=== PATIENT | male | born 1980 | race American Indian/Alaskan Native ===

== ENCOUNTER 2019-03-03 02:52 | Emergency (ER) | payer SELFPAY ==
[2019-03-03 03:59] LABS: Basophils % (Auto) 0.6 % (0.0-1.8); Eosinophils # (Auto) 0.1 K/mm3 (0.0-0.4); Eosinophils % (Auto) 2.2 % (0.0-4.3); Hematocrit 47.8 % (35.5-45.6); Lymphocytes # (Auto) 2.6 K/mm3 (1.2-5.4); Lymphocytes % (Auto) 44.4 % (13.4-35.0); Mean Corpuscular HGB Conc 34 % (32-34); Mean Corpuscular Volume 103 fl (84-94); Monocytes # (Auto) 0.5 K/mm3 (0.0-0.8); Monocytes % (Auto) 8.7 % (0.0-7.3); Platelet Count 225 K/mm3 (140-440); Red Blood Count 4.65 M/mm3 (3.65-5.03)
--- NOTE | 2019-03-03 04:00 | XRay Report ---
CHEST 1 VIEW INDICATION / CLINICAL INFORMATION: Chest Pain. COMPARISON: None available. FINDINGS: SUPPORT DEVICES: None. HEART / MEDIASTINUM: No significant abnormality. LUNGS / PLEURA: No significant pulmonary or pleural abnormality.. No pneumothorax. ADDITIONAL FINDINGS: No significant additional findings. IMPRESSION: 1. No acute findings. Signer Name: Tera Branham MD Signed: 03/03/2019 3:56 AM Workstation Name: [id number]
[2019-03-03 04:22] LABS: BUN/Creatinine Ratio 7; Blood Urea Nitrogen 11 mg/dL (9-20); Calcium 9.3 mg/dL (8.4-10.2); Hemolysis Index 18
[2019-03-03] MEDS ORDERED: NACL 0.9% 1000 ML 1,000 ML IV ONE (04:24)
[2019-03-03] MEDS ORDERED: BENADRYL IV ONE (04:24)
[2019-03-03] MEDS ORDERED: DECADRON IV ONE (04:24)
[2019-03-03] MEDS ORDERED: TORADOL IV ONE (04:24)
[2019-03-03] MEDS ORDERED: REGLAN IV ONE (04:24)
--- NOTE | 2019-03-03 04:30 | Emergency Department Report ---
ED Headache HPI - General Chief Complaint: Headache Stated Complaint: MIGRAINE, VOMITTING AND CHEST PAIN, CHEST PRESSURE Time Seen by Provider: 03/03/19 04:23 Source: patient Exam Limitations: no limitations - History of Present Illness Initial Comments: 38 yo M with hx of migraines presents to the ED with complaint of headache. Pt states pain feels like his usual migraine HAs, located behind the eyes with associated photophobia, nausea and vomiting. Pt reports onset 2 days ago. States took imitrex without relief. Pt reports chest pain after vomiting so much. Denies chest pain at this time. Timing/Duration: other (2 days) Quality: severe Recent Head Trauma: no recent headache/trauma, chronic headaches Modifying Factors: improves with: exposure to light Associated Symptoms: nausea/vomiting, weakness (generalized). denies: fever/chills Allergies/Adverse Reactions: Allergies No Known Allergies Allergy (Unverified 03/03/19 03:01) Home Medications: Ambulatory Orders Butalb/Acetamin/Caff 50-325-40 [Fioricet] 1 tab PO Q6HR PRN #10 tab 03/03/19 Ondansetron [Zofran Odt] 4 mg PO Q8HR PRN #20 tab.rapdis 03/03/19 ED Review of Systems ROS: Stated complaint: MIGRAINE, VOMITTING AND CHEST PAIN, CHEST PRESSURE Other details as noted in HPI Comment: All other systems reviewed and negative Constitutional: denies: chills, fever Respiratory: denies: shortness of breath Cardiovascular: chest pain Gastrointestinal: nausea, vomiting Neurological: headache. denies: weakness, numbness ED Past Medical Hx - Past Medical History Previous Medical History?: Yes Hx Asthma: Yes - Surgical History Past Surgical History?: Yes Hx Appendectomy: Yes - Social History Smoking Status: Former Smoker Substance Use Type: None - Medications Home Medications: Home Medications Medication Instructions Recorded Confirmed Last Taken Type Butalb/Acetamin/Caff 50-325-40 1 tab PO Q6HR PRN #10 tab 03/03/19 Unknown Rx [Fioricet] Ondansetron [Zofran Odt] 4 mg PO Q8HR PRN #20 tab.rapdis 03/03/19 Unknown Rx ED Physical Exam - General Limitations: No Limitations General appearance: alert, in no apparent distress - Head Head exam: Present: atraumatic, normocephalic - Eye Eye exam: Present: normal appearance, PERRL, EOMI - ENT ENT exam: Present: mucous membranes moist - Neck Neck exam: Present: normal inspection, full ROM. Absent: meningismus - Respiratory Respiratory exam: Present: normal lung sounds bilaterally. Absent: respiratory distress - Cardiovascular Cardiovascular Exam: Present: regular rate, normal rhythm - GI/Abdominal GI/Abdominal exam: Present: soft. Absent: distended, tenderness - Extremities Exam Extremities exam: Present: normal inspection - Neurological Exam Neurological exam: Present: alert, oriented X3, CN II-XII intact. Absent: motor sensory deficit - Psychiatric Psychiatric exam: Present: normal affect, normal mood - Skin Skin exam: Present: warm, dry, intact, normal color ED Course Vital Signs 03/03/19 03/03/19 03/03/19 03:04 05:46 06:20 Temperature 98.6 F 98.1 F Pulse Rate 76 63 63 Respiratory 16 21 16 Rate Blood Pressure 178/92 138/84 Blood Pressure 129/73 [Right] O2 Sat by Pulse 99 100 100 Oximetry - Reevaluation(s) Reevaluation #1: 03/03/19 05:30 Pt asleep on stretcher. Pt reports he is feeling much better, MANRIQUE much improved compared to the last 2 days. ED Medical Decision Making - Lab Data Result diagrams: 03/03/19 03:38 03/03/19 03:38 - EKG Data EKG shows normal: sinus rhythm, axis, intervals, QRS complexes - EKG Data Interpretation: no acute changes, other (ST elevation due to early r epolarization) - Radiology Data Radiology results: report reviewed, image reviewed - Medical Decision Making 38 yo M presents to ED w/ migraine MANRIQUE. No neuro deficits on exam. Pt reports associated N/V, chest pain from vomiting. EKG shows early repolarization changes, troponin negative, CXR normal. Pt given IV fluids w/ toradol, reglan, benadryl, decadron. Pt feeling much better following administraton. Rx given for fioricet and zofran. Neurology f/u advised. - Differential Diagnosis migraine MANRIQUE, dehydration, ACS Critical care attestation.: If time is entered above; I have spent that time in minutes in the direct care of this critically ill patient, excluding procedure time. ED Disposition Clinical Impression: Acute headache, Migraine Disposition: DC- TO HOME OR SELFCARE Is pt being admited?: No Condition: Stable Instructions: Migraine Headache (ED) Prescriptions: Butalb/Acetamin/Caff 50-325-40 [Fioricet] 1 tab PO Q6HR PRN #10 tab PRN Reason: Headache Ondansetron [Zofran Odt] 4 mg PO Q8HR PRN #20 tab.rapdis PRN Reason: Vomiting Referrals: PRIMARY CAREMD [Primary Care Provider] - 3-5 Days NILDA DE LA TORRE MD [Referring] - 3-5 Days
[2019-03-03 06:21] VITALS: BP 129/73
== END 2019-03-03 06:20 | disposition home or self-care (01) ==
LOC: ED 02:52
DX: G43.909 Migraine, unspecified, not intractable, without status migrainosus (principal); J45.909 Unspecified asthma, uncomplicated; Z90.49 Acquired absence of other specified parts of digestive tract; Z87.891 Personal history of nicotine dependence; Z79.899 Other long term (current) drug therapy
CPT/HCPCS: 36415; 71045; 80048; 84484; 85025; 93005; 93010; 96361; 96374; 96375; 99284; J1100; J1200; J1885; J2765; J7030

== ENCOUNTER 2019-09-18 00:04 | Emergency (ER) | payer SELFPAY ==
[2019-09-18 00:10] VITALS: BP 115/76
[2019-09-18 00:32] LABS: Bilirubin,Urine NEG (Negative); Blood,Urine NEG (Negative); Color,Urine Yellow (Yellow); Protein,Urine <15 mg/dL mg/dL (Negative); Urobilinogen,Urine < 2.0 mg/dL (<2.0); WBC,Urine < 1.0 /HPF (0.0-6.0)
[2019-09-18 00:52] LABS: Hematocrit 50.2 % (35.5-45.6); Hemoglobin 17.3 gm/dl (11.8-15.2); Mean Corpuscular HGB Conc 34 % (32-34); Mean Corpuscular Volume 100 fl (84-94); Platelet Count 254 K/mm3 (140-440); Red Blood Count 5.02 M/mm3 (3.65-5.03); Red Cell Distribution Width 14.7 % (13.2-15.2)
[2019-09-18 01:11] LABS: Albumin 4.8 g/dL (3.9-5); Calcium 9.3 mg/dL (8.4-10.2)
[2019-09-18] MEDS ORDERED: SODIUM CHLORIDE 0.9% 1000 ML 1,000 ML IV ONE (01:39)
[2019-09-18] MEDS ORDERED: CYCLOBENZAPRINE 10 MG TAB PO ONE ×2 (01:40→01:42)
[2019-09-18] MEDS ORDERED: SODIUM CHLORIDE 0.9% 1000 ML 1,000 ML ONE (01:41)
[2019-09-18] MEDS ORDERED: CYCLOBENZAPRINE 10 MG TAB ONE (01:41)
--- NOTE | 2019-09-18 02:38 | Emergency Department Report ---
ED General Adult HPI - General Chief complaint: Recheck/Abnormal Lab/Rx Stated complaint: CK LEVELS ELEVATED,DEHYDRATION Time Seen by Provider: 09/18/19 01:40 Source: patient Mode of arrival: Ambulatory Limitations: No Limitations - History of Present Illness Initial comments: Patient is a 28-year-old male who presents emergency room with complaints of pain down the back of his right leg that began a couple of weeks ago. He states that at rest he does not have any pain but when he gets up and starts to walk around he feels the pain down the back of the leg. Patient states that he saw his primary care doctor about this last week and states that his CK was approximately 1600 and she advised oral hydration. Patient was concerned that his CK was elevated again. He states that he also had an MRI performed a couple weeks ago at [facility] which he states showed some mild impingement upon L5 and S1. He states that he has an appointment with a neurosurgeon. He states that he has been receiving back injections. He denies any leg swelling, chest pain, shortness of breath. He denies any allergies to medications. He did not drive to the emergency department. Severity scale (0 -10): 2 - Related Data Previous Rx's Medication Instructions Recorded Last Taken Type Butalb/Acetamin/Caff 50-325-40 1 tab PO Q6HR PRN #10 tab 03/03/19 Unknown Rx [Fioricet] Ondansetron [Zofran Odt] 4 mg PO Q8HR PRN #20 tab.rapdis 03/03/19 Unknown Rx Acetaminophen/Codeine [Tylenol 1 tab PO Q6H PRN #10 tab 09/18/19 Unknown Rx /Codeine # 3 tab] Cyclobenzaprine [Flexeril] 10 mg PO QHS PRN #12 tablet 09/18/19 Unknown Rx Allergies Allergy/AdvReac Type Severity Reaction Status Date / Time No Known Allergies Allergy Verified 09/18/19 01:47 ED Review of Systems ROS: Stated complaint: CK LEVELS ELEVATED,DEHYDRATION Other details as noted in HPI Comment: All other systems reviewed and negative ED Past Medical Hx - Past Medical History Previous Medical History?: Yes Hx Asthma: Yes - Surgical History Past Surgical History?: Yes Hx Appendectomy: Yes - Social History Smoking Status: Never Smoker Substance Use Type: None - Medications Home Medications: Home Medications Medication Instructions Recorded Confirmed Last Taken Type Butalb/Acetamin/Caff 50-325-40 1 tab PO Q6HR PRN #10 tab 03/03/19 Unknown Rx [Fioricet] Ondansetron [Zofran Odt] 4 mg PO Q8HR PRN #20 tab.rapdis 03/03/19 Unknown Rx Acetaminophen/Codeine [Tylenol 1 tab PO Q6H PRN #10 tab 09/18/19 Unknown Rx /Codeine # 3 tab] Cyclobenzaprine [Flexeril] 10 mg PO QHS PRN #12 tablet 09/18/19 Unknown Rx ED Physical Exam - General Limitations: No Limitations General appearance: alert, in no apparent distress - Head Head exam: Present: atraumatic, normocephalic - Eye Eye exam: Present: normal appearance - ENT ENT exam: Present: mucous membranes moist - Neck Neck exam: Present: normal inspection, full ROM. Absent: tenderness - Respiratory Respiratory exam: Present: normal lung sounds bilaterally. Absent: respiratory distress, wheezes, rales, rhonchi, stridor, chest wall tenderness, accessory muscle use, decreased breath sounds, prolonged expiratory - Cardiovascular Cardiovascular Exam: Present: regular rate, normal rhythm, normal heart sounds. Absent: systolic murmur, diastolic murmur, rubs, gallop - Extremities Exam Extremities exam: Present: normal inspection, full ROM, normal capillary refill, other (FROM of the BLE, no BLE edema, no erythema, no increased warmth, no calf ttp, neurovasculalrly intact). Absent: pedal edema, joint swelling, calf tenderness - Back Exam Back exam: Present: normal inspection, full ROM. Absent: paraspinal tenderness, vertebral tenderness - Neurological Exam Neurological exam: Present: alert, oriented X3, CN II-XII intact, normal gait. Absent: motor sensory deficit - Psychiatric Psychiatric exam: Present: normal affect, normal mood - Skin Skin exam: Present: warm, dry, intact ED Course Vital Signs 09/18/19 09/18/19 00:08 02:11 Temperature 98.1 F Pulse Rate 120 H 81 Respiratory 18 16 Rate Blood Pressure 115/76 O2 Sat by Pulse 97 100 Oximetry ED Medical Decision Making - Lab Data Result diagrams: 09/18/19 00:33 09/18/19 00:33 Labs 09/18/19 09/18/19 09/18/19 00:33 00:33 Unknown WBC 8.7 RBC 5.02 Hgb 17.3 H Hct 50.2 H MCV 100 H MCH 34 H MCHC 34 RDW 14.7 Plt Count 254 Sodium 138 Potassium 4.2 Chloride 96.1 L Carbon Dioxide 30 Anion Gap 16 BUN 17 Creatinine 1.7 H Estimated GFR 55 BUN/Creatinine Ratio 10 Glucose 116 H Calcium 9.3 Magnesium 2.60 H Total Bilirubin 0.20 AST 27 ALT 37 Alkaline Phosphatase 82 Total Creatine Kinase 128 Total Protein 7.3 Albumin 4.8 Albumin/Globulin Ratio 1.9 Urine Color Yellow Urine Turbidity Clear Urine pH 6.0 Ur Specific Baldwin 1.012 Urine Protein <15 mg/dl Urine Glucose (UA) Neg Urine Ketones Neg Urine Blood Neg Urine Nitrite Neg Urine Bilirubin Neg Urine Urobilinogen < 2.0 Ur Leukocyte Esterase Neg Urine WBC (Auto) < 1.0 Urine RBC (Auto) 1.0 Vital Signs 09/18/19 09/18/19 00:08 02:11 Temperature 98.1 F Pulse Rate 120 H 81 Respiratory 18 16 Rate Blood Pressure 115/76 O2 Sat by Pulse 97 100 Oximetry - Medical Decision Making Patient is a 28-year-old male who presents emergency room with complaints of pain down the back of his right leg that began a couple of weeks ago. He states that at rest he does not have any pain but when he gets up and starts to walk around he feels the pain down the back of the leg. Patient states that he saw his primary care doctor about this last week and states that his CK was approxim ately 1600 and she advised oral hydration. Patient was concerned that his CK was elevated again. He states that he also had an MRI performed a couple weeks ago at [facility] which he states showed some mild impingement upon L5 and S1. He states that he has an appointment with a neurosurgeon. He states that he has been receiving back injections. He denies any leg swelling, chest pain, shortness of breath. He denies any allergies to medications. He did not drive to the emergency department. Initial vitals with tachycardia which improved upon repeat to normal. No abnormality on physical examination as documented in chart, no leg swelling, no calf tenderness, neurovascularly intact. Labs are stable. Electrolytes are stable. Kidney function is stable from prior. CK is normal. UA without protein. Patient given 1 L IV fluids and Flexeril and symptoms improved. Symptoms most likely related to lumbar radiculopathy secondary to his impingement which he states they found on MRI.. Patient already has an appointment with a neurosurgeon. He has no numbness, weakness, saddle numbness, bowel bladder incontinence, red flag warning signs. Patient given prescription for Tylenol with codeine and Flexeril. Advised patient Please take medication as prescribed as needed. Do not drive or operate machinery while taking pain medication or muscle relaxer. May use ice pack, heating pad, rest, Epson salt bath. Follow-up with a primary care doctor. Keep your appointment with your neurosurgeon. Return to the emergency room for any new or worsening symptoms. - Differential Diagnosis Rhabdomyolysis, electrolyte disturbance, lumbar radiculopathy, sciatica,DDD Critical care attestation.: If time is entered above; I have spent that time in minutes in the direct care of this critically ill patient, excluding procedure time. ED Disposition Clinical Impression: Right leg pain Disposition: - TO HOME OR SELFCARE Is pt being admited?: No Does the pt Need Aspirin: No Condition: Stable Instructions: Lumbar Radiculopathy (ED) Additional Instructions: Please take medication as prescribed as needed. Do not drive or operate machinery while taking pain medication or muscle relaxer. May use ice pack, heating pad, rest, Epson salt bath. Follow-up with a primary care doctor. Keep your appointment with your neurosurgeon. Return to the emergency room for any new or worsening symptoms. Prescriptions: Cyclobenzaprine [Flexeril] 10 mg PO QHS PRN #12 tablet PRN Reason: Muscle Spasm Acetaminophen/Codeine [Tylenol /Codeine # 3 tab] 1 tab PO Q6H PRN #10 tab PRN Reason: Pain , Severe (7-10) Referrals: PRIMARY CARE, [Primary Care Provider] - 2-3 Days [facility] [Outside] - 2-3 Days Time of Disposition: 02:36 Print Language: CITIZEN OF [place]
== END 2019-09-18 03:00 | disposition home or self-care (01) ==
LOC: ED 00:04
DX: M79.604 Pain in right leg (principal); E86.0 Dehydration; R74.8 Abnormal levels of other serum enzymes; J45.909 Unspecified asthma, uncomplicated; Z79.899 Other long term (current) drug therapy; Z90.49 Acquired absence of other specified parts of digestive tract
CPT/HCPCS: 36415; 80053; 81001; 82550; 83735; 85027; 96361; 99283; J7030